=== PATIENT | male | born 2000 | race Caucasian/White ===

== ENCOUNTER → 2022-07-15 | Outpatient (CLI) | payer MEDICAID | LOC: M WUC 15:37 | PROVIDERS: ATTEND Physician Assistant Medical | DX: M25.512 Pain in left shoulder (principal) ==

== ENCOUNTER 2022-09-15 13:37 | Outpatient (RCR) | payer MEDICAID, OTHER | END 2022-10-09 | LOC: M PT 13:37 | PROVIDERS: ATTEND Orthopaedic Surgery | DX: M75.52 Bursitis of left shoulder (principal) ==